=== PATIENT | female | born 1980 | race African-American/Black ===

== ENCOUNTER 2017-03-10 13:56 | Emergency (ER) | payer OTHER ==
[~2017-03-10] VITALS: Ht 162.6 cm; Wt 63.5 kg
--- NOTE | 2017-03-10 14:38 | Emergency Room Report ---
History of Present Illness General Chief Complaint: General Complaint Source: Patient Present Illness HPI 36-year-old female presents to the emergency department complaining of 8/10 in severity sore throat x2 days with subjective fevers and chills. Patient also reports bodyaches. Patient denies cough. She denies neck pain or swelling. Patient denies stiff neck or headache. Patient denies ill contacts or recent travel. Pt. reports that she has been taking tea with honey and Motrin. Denies CP, Palpitations, LOC, AMS, dizziness, Changes in Vision, Sensation, paresthesias, or a sudden severe headache. Allergies: Coded Allergies: No Known Allergies (Unverified , 03/10/17) Patient History Past Medical History: see triage record Past Surgical History: none Pertinent Family History: none Last Menstrual Period: 03/01/17 Now: No : 3 Para: 2 Immunizations: UTD Reviewed Nursing Documentation: PMH: Agreed, PSxH: Agreed Nursing Documentation-PMH Past Medical History: No Stated History Physical Exam Vital Signs Date Time Temp Pulse Resp B/P Pulse Ox O2 Delivery O2 Flow Rate FiO2 03/10/17 14:07 98.1 105 18 155/110 97 Room Air Sp02 EP Interpretation: reviewed, abnormal - tachy 105 bpm, elevated BP General Appearance: no apparent distress, alert, GCS 15, non-toxic Head: normocephalic, atraumatic Eyes: bilateral eye PERRL, bilateral eye normal inspection ENT: hearing grossly normal, normal pharynx, no angioedema, normal voice, TMs + canals normal, uvula midline, moist mucus membranes, tonsillar swelling, pharyngeal erythema Neck: full range of motion, no meningismus, no bony tend, supple/symm/no masses Respiratory: lungs clear, normal breath sounds, speaking full sentences Cardiovascular #1: regular rate, rhythm, no edema Musculoskeletal: back normal, gait/station normal, normal range of motion, non- tender Neurologic: alert, oriented x3, responsive, motor strength/tone normal, sensory intact, speech normal Psychiatric: judgement/insight normal, memory normal, mood/affect normal Skin: normal color, no rash, warm/dry, well hydrated Lymphatic: other - bilateral subparotid LAD Medical Decision Making PA Attestation Dr. mckeon is my supervising Physician whom patient management has been discussed with. Diagnostic Impression: Primary Impression: Pharyngitis, acute Qualified Codes: J02.0 - Streptococcal pharyngitis ER Course Pt. presents to the ED c/o : sore throat, tonsillar swelling,subjective fevers and chills x 2 days. pt. has been taking tea with honey and motrin. Ddx considered but are not limited to: pharyngitis, strep, VEHICLE TECHNICIAN, ludwigs angina, URI Vital signs: Tachycardic at 103 bpm, afebrile H&PE are most consistent with: pharyngitis presumed strep. ORDERS: None required at this time as the diagnosis is clinical ED INTERVENTIONS: none required at this time. DISCHARGE: At this time pt. is stable for d/c to home. Will provide printed patient care instructions, and any necessary prescriptions. Care plan and follow up instructions have been discussed with the patient prior to discharge. Last Vital Signs Date Time Temp Pulse Resp B/P Pulse Ox O2 Delivery O2 Flow Rate FiO2 03/10/17 14:07 98.1 105 18 155/110 97 Room Air Disposition: HOME, SELF-CARE Condition: Stable Scripts Ibuprofen* (MOTRIN*) 400 Mg Tablet 400 MG ORAL THREE TIMES A DAY, #30 TAB 0 Refills Prov: Kassidy Woody 03/10/17 Lidocaine HCl (Lidocaine HCl Viscous) 100 Ml Solution 15 MG MM QID, #200 MG Prov: Kassidy Woody 03/10/17 Amoxicillin* (AMOXIL*) 500 Mg Capsule 500 MG ORAL BID for 7 Days, #14 CAP Prov: Kassidy Woody 03/10/17 Referrals: [facility],REFERRING (PCP) Patient Instructions: Pharyngitis Additional Instructions: Take medications as directed. Follow up with a Primary Care Provider in 3-5 days, even if your symptoms have resolved. --Please review list of primary care clinics, if you do not already have a primary care provider Return sooner to ED if new symptoms occur, or current symptoms become worse. - Please note that this Emergency Department Report was dictated using Siemenstechnical support professional technology software, occasionally this can lead to erroneous entry secondary to interpretation by the dictation equipment. Kassidy Woody Mar 10, 2017 14:38
[2017-03-10] MEDS ORDERED: LIDOCAINE20 MG/1 M1 MM (14:41)
[2017-03-10] MEDS ORDERED: IBUPROFEN400 MG ORAL (14:41)
[2017-03-10] MEDS ORDERED: AMOXICILLIN500 MG ORAL (14:41)
[2017-03-10 14:58] VITALS: BP 155/110
== END 2017-03-10 15:00 | disposition home or self-care (01) ==
LOC: EMR 14:32
DX: J02.9 Acute pharyngitis, unspecified (principal)
CPT/HCPCS: 99284

== ENCOUNTER 2017-10-21 17:12 | Emergency (ER) | payer OTHER ==
[~2017-10-21] VITALS: Ht 162.6 cm; Wt 59.0 kg
[~2017-10-21 17:12] MED LIST: AMOXICILLIN500 MG ORAL; IBUPROFEN400 MG ORAL; LIDOCAINE20 MG/1 M1 MM
[2017-10-21] MEDS ORDERED: NKM (17:39)
[2017-10-21 17:41] VITALS: BP 126/82
[2017-10-21] MEDS ORDERED: Phenazopyridine 200mg tab ORAL ONE (18:00)
[2017-10-21 18:16] LABS: APPEARANCE,URINE CLOUDY; BILIRUBIN, URINE NEGATIVE (NEGATIVE); GLUCOSE, URINE (UA) NEGATIVE (NEGATIVE); KETONES,URINE NEGATIVE (NEGATIVE); LEUKOCYTE ESTERASE ,URINE 3+ (NEGATIVE); NITRITE,URINE NEGATIVE (NEGATIVE); PH,URINE 5 (4.5-8.0); PROTEIN,URINE 1+ (NEGATIVE); UROBILINOGEN,URINE NORMAL MG/DL (0.0-1.0)
[2017-10-21 18:18] LABS: COLOR,URINE YELLOW
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
[2017-10-21] MEDS ORDERED: NITROFURANTOIN100 M2 ORAL (18:42)
[2017-10-21] MEDS ORDERED: PHENAZOPYRIDIN200 MG ORAL (18:42)
[2017-10-21] MEDS ORDERED: ROBAXIN500 MG PO (18:53)
[2017-10-21 18:57] VITALS: BP 126/82
== END 2017-10-21 18:57 | disposition home or self-care (01) ==
LOC: EMR 18:20
DX: N30.01 Acute cystitis with hematuria (principal); M62.838 Other muscle spasm
CPT/HCPCS: 81003; 87086; 99284

== ENCOUNTER 2018-10-02 16:19 | Emergency (ER) | payer OTHER ==
[~2018-10-02] VITALS: Ht 162.6 cm; Wt 58.1 kg
[~2018-10-02 16:19] MED LIST changes: +NITROFURANTOIN100 M2 ORAL; +NKM; +PHENAZOPYRIDIN200 MG ORAL; +ROBAXIN500 MG PO
--- NOTE | 2018-10-02 16:28 | NUR ---
ED Nurse Note: Pt came into the ER for pregancy test and chlamydia tx. Per pt, her partner stated that he was treated for chlamydia 2 weeks ago. Pt is asymptomatic. A + O x4. Ambulatory. Skin warm to touch.
[2018-10-02 16:29] VITALS: BP 135/90
--- NOTE | 2018-10-02 17:10 | Emergency Room Report ---
History of Present Illness General Chief Complaint: Female Urogenital Problems Source: Patient Present Illness HPI 38-year-old female presents to the emergency department complaining of exposure to possible venereal disease. Patient states that her partner contacted her and stated that he required treatment for chlamydia approximately 2 weeks ago. Patient denies symptoms such as vaginal discharge, vaginal rashes/itching/ dyspareunia. Patient denies swollen tender lymph nodes or joint pain. Patient states that she is having unprotected intercourse and also wants to be checked for possible . Patient states that her period is due today as not started her period. denies nausea, vomiting, fevers, chills. Allergies: Coded Allergies: No Known Allergies (Unverified , 03/10/17) Patient History Past Medical History: see triage record Past Surgical History: none Pertinent Family History: none Last Menstrual Period: 09/01/18 Now: No Reviewed Nursing Documentation: PMH: Agreed; PSxH: Agreed Nursing Documentation-PMH Past Medical History: No Stated History Review of Systems All Other Systems: negative except mentioned in HPI Physical Exam Vital Signs Date Time Temp Pulse Resp B/P (MAP) Pulse Ox O2 Delivery O2 Flow Rate FiO2 10/02/18 16:24 98.1 103 18 141/91 100 Room Air Sp02 EP Interpretation: reviewed, normal General Appearance: no apparent distress, alert, GCS 15, non-toxic Head: normocephalic, atraumatic Eyes: bilateral eye normal inspection, bilateral eye PERRL ENT: hearing grossly normal, normal voice Neck: full range of motion Respiratory: lungs clear, normal breath sounds, speaking full sentences Cardiovascular #1: regular rate, rhythm Gastrointestinal: non tender, soft Genitourinary: normal inspection, no CVA tenderness Musculoskeletal: back normal, gait/station normal, normal range of motion, non- tender Neurologic: alert, oriented x3, responsive, motor strength/tone normal, sensory intact, speech normal, grossly normal Psychiatric: judgement/insight normal Skin: normal color, no rash, warm/dry, well hydrated Lymphatic: no adenopathy Medical Decision Making PA Attestation Dr. Villarreal is my supervising Physician whom patient management has been discussed with. Diagnostic Impression: Primary Impression: Exposure to venereal disease ER Course 38-year-old female presents to the emergency department complaining of exposure to possible venereal disease. Patient states that her partner contacted her and stated that he required treatment for chlamydia approximately 2 weeks ago. Patient denies symptoms such as vaginal discharge, vaginal rashes/itching/ dyspareunia. Patient denies swollen tender lymph nodes or joint pain. Patient states that she is having unprotected intercourse and also wants to be checked for possible . Patient states that her period is due today as not started her period. denies nausea, vomiting, fevers, chills. Ddx considered but are not limited to UTi , STI, G & C, trichomonas, Vaginitis , cervicitis, PID just to name a few. Vital signs: are WNL, pt. is afebrile H&PE are most consistent with vaginitis ORDERS: - Hcg : Negative ED INTERVENTIONS: -250mg Rocephin IM - 1g Azithromyci DISCHARGE: At this time pt. is stable for d/c to home. Will provide printed patient care instructions, and any necessary prescriptions. Care plan and follow up instructions have been discussed with the patient prior to discharge. Labs Test 10/02/18 17:12 Urine HCG, Qualitative Negative (NEGATIVE) Last Vital Signs Date Time Temp Pulse Resp B/P (MAP) Pulse Ox O2 Delivery O2 Flow Rate FiO2 10/02/18 16:29 98.1 78 20 135/90 100 Room Air Disposition: HOME, SELF-CARE Condition: Stable Patient Instructions: Chlamydia, Female, [id number] Additional Instructions: Take any previously prescribed medications as directed. Follow up with a Primary Care Provider in 3-5 days, even if your symptoms have resolved. --Please review list of primary care clinics, if you do not already have a primary care provider Return sooner to ED if new symptoms occur, or current symptoms become worse. - Please note that this Emergency Department Report was dictated using Bioenvisionoutpatient program coordinator technology software, occasionally this can lead to erroneous entry secondary to interpretation by the dictation equipment. Kassidy Woody Oct 02, 2018 17:10
[2018-10-02] MEDS ORDERED: Azithromycin 250mg tab ORAL ONE (17:15)
[2018-10-02] MEDS ORDERED: Lidocaine 1% MPF 10mg/ml 5ml INJ ONE (17:15)
[2018-10-02 17:40] VITALS: BP 130/85
--- NOTE | 2018-10-02 17:41 | NUR ---
ER DISCHARGE NOTE: Patient is cleared to be discharged per ERMD, pt is aox4, on room air, with stable vital signs. pt was given dc and prescription instructions, pt was able to verbalize understanding, pt id band removed without complications. pt is able to ambulate with steady gait. pt took all belongings.
== END 2018-10-02 17:41 | disposition home or self-care (01) ==
LOC: EMR 16:59
DX: Z20.2 Contact with and (suspected) exposure to infections with a predominantly sexual mode of transmission (principal)
CPT/HCPCS: 81025; 96372; 96374; 99284; J0696; Q0144

== ENCOUNTER 2018-12-15 03:39 | Emergency (ER) | payer SELFPAY ==
[~2018-12-15] VITALS: Ht 162.6 cm; Wt 58.1 kg
--- NOTE | 2018-12-15 03:48 | NUR ---
ED Nurse Note: Not in waiting room.
[2018-12-15] MEDS ORDERED: Acetaminophen 500mg (ES) tab ORAL ONE (04:00)
--- NOTE | 2018-12-15 04:04 | Emergency Room Report ---
History of Present Illness General Chief Complaint: Upper Extremity Injury Source: Patient Present Illness HPI Patient 38-year-old female presented after increased left-sided thumb and wrist pain. Patient had a fall at home. She reports of increased pain to her thumb. She reports having increased swelling. She describes throbbing pain to the thumb she is left-hand dominant. She denies other locations of injury. Allergies: Coded Allergies: No Known Allergies (Unverified , 03/10/17) Patient History Past Medical History: see triage record Last Menstrual Period: 11/24/18 Reviewed Nursing Documentation: PMH: Agreed; PSxH: Agreed Nursing Documentation-PMH Past Medical History: No Stated History Review of Systems All Other Systems: negative except mentioned in HPI Physical Exam Vital Signs Date Time Temp Pulse Resp B/P (MAP) Pulse Ox O2 Delivery O2 Flow Rate FiO2 12/15/18 03:51 98.1 105 16 97 Room Air General Appearance: well appearing, no apparent distress, alert, GCS 15 Head: normocephalic, atraumatic ENT: hearing grossly normal, normal voice Neck: full range of motion, supple Respiratory: no respiratory distress, speaking full sentences Cardiovascular #1: normal inspection Musculoskeletal: swelling - left thumb thenar eminence Neurologic: normal inspection, alert, oriented x3, responsive, normal gait Psychiatric: mood/affect normal Skin: no rash Medical Decision Making Diagnostic Impression: Primary Impression: Fall Additional Impression: Closed hand fracture ER Course Patient presented after a fall. Differential diagnosis include was not limited to fracture, dislocation, muscle sprain among others. X-ray imaging of the left wrist read by radiology showed triangular shaped bone fragment between the first and second metacarpal with unclear etiology. Patient was placed in a thumb spica splint. She appears to have adequate sensation. Thumb appears to be vascularly intact. Patient advised to follow-up with primary care physician for hand surgery referral for likely operative repair of fracture. Patient was advised to return if she had worsening pain discoloration or other concerns Labs Test 12/15/18 05:25 Urine HCG, Qualitative Negative (NEGATIVE) Last Vital Signs Date Time Temp Pulse Resp B/P (MAP) Pulse Ox O2 Delivery O2 Flow Rate FiO2 12/15/18 03:51 98.1 105 16 97 Room Air Status: improved Disposition: HOME, SELF-CARE Condition: Stable Scripts Hydrocodone Bit/Acetaminophen 5-325* (NORCO 5-325*) 1 Each Tablet 1 TAB ORAL Q6H PRN for For Pain, #10 TAB 0 Refills Prov: Deric Gautam MD 12/15/18 Ibuprofen* (MOTRIN*) 600 Mg Tablet 600 MG ORAL Q8H PRN for For Pain, #30 TAB 0 Refills Prov: Deric Gautam MD 12/15/18 Deric Gautam MD December 15, 2018 04:04
[2018-12-15 04:08] VITALS: BP 148/86
--- NOTE | 2018-12-15 04:08 | NUR ---
ED Nurse Note: Pt arrived ED from home, c/o left wrist pain 05/17 after fell at home today. Pt is A/O X 4. VSS, waiting for orders.
--- NOTE | 2018-12-15 04:14 | NUR ---
ED Nurse Note: Two bracelets removed from left wrist with flat head screw warehouse driver by security, and given to patient.
[2018-12-15] MEDS ORDERED: NORCO 5-325 TA1 EACH ORAL (04:30)
[2018-12-15] MEDS ORDERED: CEPHALEXIN500 MG ORAL (04:30)
[2018-12-15] MEDS ORDERED: IBUPROFEN600 MG ORAL (04:30)
[2018-12-15 05:31] VITALS: BP 148/86
--- NOTE | 2018-12-15 05:31 | NUR ---
ER DISCHARGE NOTE: Patient is cleared to be discharged per Dr. Gautam. X-ray done, brace applied to left wrist. Pt is aox4 on room air with stable vital signs.Pt was given dc and prescription instructions, pt was able to verbalize understanding, pt id band removed. pt is able to ambulate with steady gait. pt took all belongings.
--- NOTE | 2018-12-15 12:14 | Diagnostic Imaging Report ---
Indication: Left wrist pain Findings: 3 views of the left wrist were obtained. There is a small bone fragment between the first and second metacarpals. This is not well evaluated and could represent a fracture. Correlation with the area of pain recommended. No acute fractures, malalignment, erosions or periostitis are identified otherwise. Soft tissues are unremarkable. Impression: Unexplained bone fragment adjacent to the trapezoid bone at the base of the first metacarpal/second metacarpal. If this is the area of pain and injury, further evaluation with CT is suggested.
== END 2018-12-15 05:31 | disposition home or self-care (01) ==
LOC: EMR 04:04
DX: S62.102A Fracture of unspecified carpal bone, left wrist, initial encounter for closed fracture (principal); W19.XXXA Unspecified fall, initial encounter; Y92.9 Unspecified place or not applicable
CPT/HCPCS: 29130; 81025; 99283

== ENCOUNTER 2018-12-26 16:12 | Emergency (ER) | payer OTHER ==
[~2018-12-26] VITALS: Ht 162.6 cm; Wt 58.1 kg
[~2018-12-26 16:12] MED LIST changes: +CEPHALEXIN500 MG ORAL; +IBUPROFEN600 MG ORAL; +NORCO 5-325 TA1 EACH ORAL
[2018-12-26 16:30] VITALS: BP 125/81
--- NOTE | 2018-12-26 16:40 | NUR ---
ED Nurse Note: Patient left without being seen. patient reports she needs to go give a ride, she cannot stay. RN explained the risk of leaving the hospital without being seen, patient verbalized understanding and left.
--- NOTE | 2018-12-26 22:00 | Emergency Room Report ---
History of Present Illness General Chief Complaint: Upper Extremity Injury Source: Patient Present Illness HPI This patient left prior to evaluation by medical provider. Allergies: Coded Allergies: No Known Allergies (Unverified , 03/10/17) Patient History Last Menstrual Period: 12/18/18 Nursing Documentation-[facility] Past Medical History: No Stated History Physical Exam Vital Signs Date Time Temp Pulse Resp B/P (MAP) Pulse Ox O2 Delivery O2 Flow Rate FiO2 12/26/18 16:24 98.2 71 18 99 Room Air 12/26/18 16:30 125/81 Medical Decision Making PA Attestation Dr. mckeon is my supervising Physician whom patient management has been discussed with. ER Course This patient left prior to evaluation by medical provider. Last Vital Signs Date Time Temp Pulse Resp B/P (MAP) Pulse Ox O2 Delivery O2 Flow Rate FiO2 12/26/18 16:30 98.2 68 18 125/81 99 Room Air Disposition: LEFT W/OUT BEING SEEN Condition: Unknown [facility]errals: [facility]ERR[facility] (PCP) Kassidy Woody December 26, 2018 22:00
[2018-12-27] MEDS ORDERED: NAPROXEN500 M1 ORAL (15:11)
== END 2018-12-26 17:00 | disposition left against medical advice (07) ==
LOC: EMR 16:40
DX: Z53.21 Procedure and treatment not carried out due to patient leaving prior to being seen by health care provider (principal)

== ENCOUNTER 2018-12-27 14:35 | Emergency (ER) | payer OTHER ==
[~2018-12-27] VITALS: Ht 162.6 cm; Wt 54.4 kg
[2018-12-27 15:01] VITALS: BP 119/75
--- NOTE | 2018-12-27 15:02 | NUR ---
ED Nurse Note:pt. came for F/U of her left thumb fracture, seen by ER PA
[2018-12-27] MEDS ORDERED: NAPROXEN500 M1 ORAL (15:11)
--- NOTE | 2018-12-27 15:11 | Emergency Room Report ---
History of Present Illness General Chief Complaint: Upper Extremity Injury Source: Patient Present Illness HPI 38-year-old female presents to the emergency department for follow-up of her left wrist fracture. Patient sustained fracture earlier this month and was supposed to have orthopedic follow-up however she states that her insurance dropped her right before she was able to make an appointment. She states that she continues to have intermittent dull ache/pain in the left wrist. Patient denies pain at the moment. Patient states she is been primarily taking Motrin and has only uses about half of her previously prescribed Jeffers. Patient denies new trauma or fall. She denies paresthesias she states that she is left- hand dominant. Patient is requesting orthopedic follow-up. Allergies: Coded Allergies: No Known Allergies (Unverified , 03/10/17) Patient History Past Medical History: see triage record Past Surgical History: none Pertinent Family History: none Now: No Reviewed Nursing Documentation: PMH: Agreed; PSxH: Agreed Nursing Documentation-PMH Past Medical History: No Stated History Review of Systems All Other Systems: negative except mentioned in HPI Physical Exam Vital Signs Date Time Temp Pulse Resp B/P (MAP) Pulse Ox O2 Delivery O2 Flow Rate FiO2 12/27/18 14:37 98.4 94 18 119/75 (90) 99 Room Air Sp02 EP Interpretation: reviewed, normal General Appearance: no apparent distress, alert, GCS 15, non-toxic Head: normocephalic, atraumatic Eyes: bilateral eye normal inspection, bilateral eye PERRL ENT: hearing grossly normal, normal voice Neck: full range of motion Respiratory: lungs clear, normal breath sounds, speaking full sentences Cardiovascular #1: regular rate, rhythm, normal capillary refill Musculoskeletal: back normal, gait/station normal, normal range of motion, tender - Thenar aspect of the left hand, no bruising noted. Patient has thumb spica splint Neurologic: alert, oriented x3, responsive, motor strength/tone normal, sensory intact, speech normal, grossly normal Psychiatric: judgement/insight normal Skin: normal color, no rash, warm/dry, well hydrated Medical Decision Making PA Attestation Dr. Gibbs is my supervising Physician whom patient management has been discussed with. Diagnostic Impression: Primary Impression: Fracture of left wrist Qualified Codes: S62.102D - Fracture of unspecified carpal bone, left wrist, subsequent encounter for fracture with routine healing ER Course 38-year-old female presents to the emergency department for follow-up of her left wrist fracture. Patient sustained fracture earlier this month and was supposed to have orthopedic follow-up however she states that her insurance dropped her right before she was able to make an appointment. She states that she continues to have intermittent dull ache/pain in the left wrist. Patient denies pain at the moment. Patient states she is been primarily taking Motrin and has only uses about half of her previously prescribed Jeffers. Patient denies new trauma or fall. She denies paresthesias she states that she is left- hand dominant. Patient is requesting orthopedic follow-up. Ddx considered but are not limited to Fracture, dislocation, contusion, Sprain/ Strain/Spasm,circulatory compromise Vital signs: are WNL, pt. is afebrile H&PE are most consistent with musculoskeletal injury will perform imaging to r/ o fractures/dislocations. ORDERS: - X-ray are not needed reviewed official report from previous x-ray. ED INTERVENTIONS: - no interventions at this time patient was offered a sling for which she declined. Discussed with patient I will be giving her an orthopedic urgent care resource information to have follow-up. patient is to continue wearing thumb spica splint it is in good position and she is NVI. DISCHARGE: At this time pt. is stable for d/c to home. Will provide printed patient care instructions, and any necessary prescriptions. Care plan and follow up instructions have been discussed with the patient prior to discharge. Last Vital Signs Date Time Temp Pulse Resp B/P (MAP) Pulse Ox O2 Delivery O2 Flow Rate FiO2 12/27/18 15:01 98.4 78 18 119/75 99 Room Air Disposition: HOME, SELF-CARE Condition: Stable Scripts Naproxen* (NAPROXEN*) 500 Mg Tablet. 500 MG ORAL TWICE A DAY for 10 Days, #20 TAB Prov: Kassidy Woody 12/27/18 Referrals: [facility]ERR[facility] Patient Instructions: Medical Screening Exam Additional Instructions: Take medications as directed. Follow up with an [facility] SALESPERSON within 3-5 days, even if your symptoms have resolved. --Please review list of primary care clinics, if you do not already have a primary care provider who can give you an Orthopedic Referral. Return sooner to ED if new symptoms occur, or current symptoms become worse. - Please note that this Emergency Department Report was dictated using [employer] sales broker technology software, occasionally this can lead to erroneous entry secondary to interpretation by the dictation equipment. Kassidy Woody December 27, 2018 15:11
[2018-12-27 15:17] VITALS: BP 119/75
--- NOTE | 2018-12-27 15:25 | NUR ---
ER DISCHARGE NOTE: Patient is cleared to be discharged per ERMD, pt is aox4, on room air, with stable vital signs. pt was given dc and prescription instructions, pt was able to verbalize understanding, pt is able to ambulate with steady gait. pt took all belongings.
== END 2018-12-27 15:25 | disposition home or self-care (01) ==
LOC: EMR 14:54
DX: S62.102D Fracture of unspecified carpal bone, left wrist, subsequent encounter for fracture with routine healing (principal); X58.XXXA Exposure to other specified factors, initial encounter; Y92.9 Unspecified place or not applicable
CPT/HCPCS: 99282